=== PATIENT | male | born 2005 | race Caucasian/White ===

== ENCOUNTER 2025-04-10 16:43 | Emergency (ER) | payer OTHER ==
[2025-04-10 17:02] VITALS: BP 122/71; TEMP 98.5; O2SAT 97
[2025-04-10 17:03] VITALS: PULSE 90
[2025-04-10 17:04] VITALS: RESP 18
[2025-04-10] MEDS: GI COCKTAIL 45 ML (Maalox/Lidocaine) PO ONE (17:13)
[2025-04-10] MEDS ORDERED: MAALOX ES 30 ML UNIT DOSE ONE (17:13)
[2025-04-10] MEDS ORDERED: XYLOCAINE VISCOUS 2% 15 ML CUP ONE (17:13)
--- NOTE | 2025-04-10 17:18 | ERPHSYRPT ---
- History of Present Illness Patient Subjective Stated Complaint: patient states he has had an upper respiratory infection for the past 2 days, patient states he is coughing up yellow phlegm, patient also complains of sob Triage Nursing Assessment: patient presents to ed via private vehicle, patient able to walk into ed without complication, patient alert and oriented x 4, skin p/w/d, patient's lungs clear throughout all dee, patient has an intermittent productive cough with yellow phlegm, patient's abdomen soft/nondistended, bowel sounds active x 4 quadrants, denies chest pain Physician History: Dysphagia, Onset of symptoms several days ago, he has a history of similar symptoms in the past, has had endoscopy and no source for his dysphagia has been found, he states several days ago he swallowed a popcorn kernel and since then has had difficulty swallowing, he also developed some congestion, In the past she had a history of mono and had severe dysphagia secondary to a sore throat, He is able to tolerate ice water, he is unable to tolerate solid foods, he has a scheduled endoscopy in the very near future Timing/Duration: day(s) (2) Severity: moderate Associated Symptoms: nausea, vomiting Allergies/Adverse Reactions: No Known Drug Allergies Allergy (Unverified 04/10/25 16:52) Hx Tetanus, Diphtheria Vaccination/Date Given: Yes Travel Risk - International Travel Have you traveled outside of the country in past 3 weeks: No - Emerging Infectious Disease Are you exhibiting symptoms associated with any current EIDs: No - Past Medical History Pertinent Past Medical History: Yes GI Medical History: Irritable Bowel Psycho-Social History: Anxiety, Depression - Past Surgical History Past Surgical History: No - Social History Smoking Status: Never smoker Exposure to second hand smoke: No Drug Use: none - Social Determinants of Health Will the patient participate in the screening: Yes Do you worry about a steady place to live?: No Do you have any problems with any of the following?: No known problems In the past 12 months,have you had to go without utilities?: No Transportation Issues: No Has anyone in your support network made you feel unsafe?: No Have you or anyone in your house had to go w/o enough food: No - Nursing Vital Signs Nursing Vital Signs: Initial Vital Signs Temperature 98.5 F 04/10/25 16:45 Pulse Rate 109 H 04/10/25 16:45 Respiratory Rate 16 04/10/25 16:45 Blood Pressure 122/71 04/10/25 16:45 O2 Sat by Pulse Oximetry 97 04/10/25 16:45 Pain Scale Pain Intensity 2 - Physical Exam General Appearance: no apparent distress, alert Eye Exam: PERRL/EOMI, eyes nml inspection Ears, Nose, Throat Exam: normal ENT inspection, TMs normal, pharynx normal, moist mucous membranes Neck Exam: normal inspection, non-tender, supple, full range of motion Respiratory Exam: normal breath sounds, lungs clear, No respiratory distress Cardiovascular Exam: regular rate/rhythm, normal heart sounds, normal peripheral pulses Gastrointestinal/Abdomen Exam: soft, normal bowel sounds, No tenderness, No mass Back Exam: normal inspection, normal range of motion, No CVA tenderness, No vertebral tenderness Extremity Exam: normal inspection, normal range of motion, pelvis stable Neurologic Exam: alert, oriented x 3, cooperative, normal mood/affect, nml cerebellar function, nml station & gait, sensation nml, No motor deficits Skin Exam: normal color, warm, dry, No rash Lymphatic Exam: No adenopathy SpO2 Interpretation: normal SpO2: 97 - Radiology Exams Chest X-ray Interpretation: Interpreted by me, No Pneumonia, No Pneumothorax, No Infiltrates, Nml Mediastinum Ordered Tests: Active Orders 24 hr Category Date Time Status CHEST 2 VIEWS (PA AND LAT) Stat Exams 04/10/25 17:09 Taken Medication Summary Discontinued Medications Generic Name Dose Route Start Last Admin Trade Name Freq PRN Reason Stop Dose Admin Al Hydrox/Mg Hydrox/Simethicone Confirm 04/10/25 17:13 Mag Hydrox/Al Hydrox/Simeth 30 Ml Udcup Administered 04/10/25 17:14 Dose 30 ml .ROUTE .STK-MED ONE Lidocaine HCl Confirm 04/10/25 17:13 Lidocaine Hcl 2% Viscous 15 Ml Udcup Administered 04/10/25 17:14 Dose 15 ml .ROUTE .STK-MED ONE Magnesium Hydroxide 45 ml 04/10/25 17:09 04/10/25 17:13 Mag Hydrx/Alum Hyd/Simeth/Lido 45 Ml Bottle PO 04/10/25 17:10 45 ml STAT ONE Administration - Progress Progress: improved Progress Note: 04/10/25 18:00 Clinically improved after GI cocktail, recommend outpatient follow-up to GI concerning endoscopy, drink plenty of fluids, antacids half hour before meals and at bedtime, Decongestions like Sudafed or Afrin nasal spray - Departure Departure Disposition: Home Clinical Impression: Upper respiratory infection, viral, Esophagitis Condition: Stable Critical Care Time: No Referrals: SUMEET DUMAS JR [NON-STAFF PHY W/O PRIVILEGES, GASTROENTEROLOGY] - Follow up with PCP 2 days Referral Note: call for appt DOCTOR,NO FAMILY [Primary Care Provider, UNKNOWN] - Follow up/PCP as directed Instructions: Upper respiratory infection in adults - ED discharge instructions, Esophagitis Additional Instructions: call your GI doctor for appt, consider AFRIN nasal spray for 3 days, consider SUDAFED 15 mg tabs, use ANTACIDS(maalox, mylanta, gaviscon) half hour before meals and at bedtime(30 mL) Forms: Work/School Release Form
--- NOTE | 2025-04-10 19:14 | XRAY ---
Indication: Cough. Comparison: None PA/lateral chest demonstrates normal heart, lungs, and bony thorax.
== END 2025-04-10 18:15 | disposition home or self-care (01) ==
LOC: ED 16:43
DX: K20.90 Esophagitis, unspecified without bleeding (principal); J06.9 Acute upper respiratory infection, unspecified; R13.10 Dysphagia, unspecified